=== PATIENT | female | born 1975 | race Caucasian/White ===

== ENCOUNTER 2023-08-23 17:11 | Outpatient (CLI) | payer OTHER, SELFPAY | END 2023-08-23 17:12 | disposition home or self-care (01) | PROVIDERS: PCP Student in an Organized Health Care Education/Training Program; Visit Provider Emergency Medicine | DX: S99.912A Unspecified injury of left ankle, initial encounter (principal); W00.0XXA Fall on same level due to ice and snow, initial encounter; Y92.008 Other place in unspecified non-institutional (private) residence as the place of occurrence of the external cause | CPT/HCPCS: A0425; A0433 ==

== ENCOUNTER 2023-08-23 17:50 | Emergency (ER) | payer OTHER, SELFPAY ==
--- NOTE | 2023-08-23 17:57 | XR_ITS ---
Final Report Patient: GENNA PHAM Facility:?[facility] Patient ID:?[id number] Site Patient ID:?[id number]. Site :?[id number] Study:?XRay Extremity Left ANKLE 2V-08/23/2023 6:17:46 PM Ordering Physician:?KELVIN Final Report: Indication: Trauma, fall. Technique: Left ankle 2 views. Comparison: None. Findings: Acute fracture dislocation of the left ankle with displaced fractures in the medial and lateral malleoli. Dictated by Enrique Mcgee MD @ 08/23/2023 8:40:42 PM (Electronic Signature)
--- NOTE | 2023-08-23 17:58 | ED.GENADULT ---
HPI - General Adult General Date Seen: 08/23/23 Chief complaint: Extremity Pain/Injury, Lower Stated complaint: Fall-ankle injury Time Seen by Provider: 08/23/23 17:56 Source: patient, EMS and RN notes reviewed Mode of arrival: EMS Limitations: other History of Present Illness HPI narrative: Patient is a 48-year-old woman brought in by EMS after slipping and falling in her garage. She was at a meat gravel today, had a few cocktails, says that she would not drive in her current state but does not think that she is particularly intoxicated. She injured her left ankle. She received 150 mcg of fentanyl by EMS. EMS reports on their initial exam she had a pulse, but that foot has become more purplish in color since their initial evaluation. She denies other injuries or complaints such as hitting her head, neck or back pain. Denies significant medical history or allergies. Related Data Home Medications Medication Instructions Recorded Confirmed atenolol 50 mg tablet 50 mg PO DAILY 08/23/23 08/23/23 irbesartan 75 mg tablet 75 mg PO DAILY 08/23/23 08/23/23 Allergies Allergy/AdvReac Type Severity Reaction Status Date / Time No Known Drug Allergies Allergy Verified 08/23/23 18:02 Review of Systems Status of ROS: Reports: 6 or more systems reviewed and unremarkable except as noted in History and below Exam Narrative: Exam Narrative: Vital signs reviewed In general, alert, mildly intoxicated seeming woman. She is conversant, appropriate. Head: Normocephalic, atraumatic. Eyes: Pupils are equal and reactive. ENT: No facial trauma. Neck: Nontender to palpation. Heart: Regular rate and rhythm. Lungs: Clear. Extremities: The left ankle is notable for obvious deformity. The foot is slightly dusky in appearance. I am not able to palpate a dorsalis pedis pulse at this time. She does have sensation in the toes. Skin: Warm dry and intact. Neurologic: She is alert she is conversant, answers questions appropriately. Moves all extremities. Speech slightly slurred. Affect: Normal. Const: Vital Signs, click to edit/add: Vital Signs - 24 hr 08/23/23 18:03 Temperature 98.5 F Pulse Rate [Pulse Oximeter] 67 Respiratory Rate 18 Blood Pressure [Le ft Upper Arm] 119/84 Pulse Oximetry 92 Oxygen Delivery Me thod Room Air Course Course ED Course: Patient was evaluated on arrival, x-rays ordered. Will plan for to prompt sedation and reduction of the fracture given absence of pulse. X-rays show a bimalleolar fracture dislocation. Procedure note: Informed consent was obtained, risks and benefits of the procedure including over-sedation, need for airway management, aspiration, damage to arteries or nerves, failure to reduce were all discussed. Offered to have family member present for discussion given patient had some alcohol on board but she said that was not necessary. Consent was signed. Dr. Vasquez provided sedation, please see his note for details. Ankle was reduced without difficulty, color of foot is much improved, pulse returned. Placed in a Faraz Lechuga splint using Orthoglass and Philipp wraps, tolerated well. No immediate complications. Repeat x-ray show adequate reduction of the fracture dislocation. Recommend orthopedic follow-up, appointment made. I have advised her to use Tylenol 3 times daily, oxycodone, 10 tablets provided from [email or web address]. Advised not to combine with alcohol. Crutches, nonweightbearing. Case reviewed briefly with Dr. Olvera. Vital Signs Vital signs: Initial Vital Signs Temperature 98.5 F 08/23/23 18:03 Temperature Source Temporal Artery Scan 08/23/23 18:03 Pulse Rate 67 08/23/23 18:03 Respiratory Rate 18 08/23/23 18:03 Blood Pressure 119/84 08/23/23 18:03 Blood Pressure Mean 95 08/23/23 18:03 Blood Pressure Position Supine 08/23/23 18:03 Pulse Oximetry 92 08/23/23 18:03 Oxygen Delivery Method Room Air 08/23/23 18:03 Vital Signs Temperature 98.5 F 08/23/23 18:03 Pulse Rate 67 08/23/23 18:03 Respiratory Rate 18 08/23/23 18:03 Blood Pressure 119/84 08/23/23 18:03 Pulse Oximetry 92 08/23/23 18:03 Oxygen Delivery Method Room Air 08/23/23 18:03 Temperature 98.5 F 08/23/23 18:03 Pulse Rate 67 08/23/23 18:03 Respiratory Rate 18 08/23/23 18:03 Blood Pressure 119/84 08/23/23 18:03 Pulse Oximetry 92 08/23/23 18:03 Oxygen Delivery Method Room Air 08/23/23 18:03 Medications Administered Medications: Discontinued Medications Generic Name Dose Route Start Last Admin Trade Name Honorio PRN Reason Stop Dose Admin Sodium Chloride 1,000 mls @ 1,000 mls/hr 08/23/23 18:00 08/23/23 18:10 0.9 % Sodium Chloride 1000 Ml IV 08/23/23 18:59 1,000 mls/hr .Q1H IAN Administration Propofol 200 mg 08/23/23 17:56 08/23/23 19:16 Propofol 10 Mg/Ml Inj IVP 08/23/23 17:57 60 mg ONCE ONE Administration Discharge Plan Discharge Clinical Impression: Closed displaced bimalleolar fracture of left ankle Patient Disposition: Home, Self-Care Condition: Improved Instructions: Ankle Fracture (ED), Closed Reduction (ED) Additional Instructions: Crutches, nonweightbearing. Maintain splint at all times, be aware it is not water proof. Orthopedic follow-up as scheduled. Tylenol 1000 mg 3 times daily. Oxycodone if needed for more severe pain. Do not combine with alcohol. Prescriptions: No Action irbesartan 75 mg tablet 75 mg PO DAILY atenolol 50 mg tablet 50 mg PO DAILY Follow Up/Referrals: Elena Paz PA-C [Primary Care Provider] - Stand Alone Forms: [employer] Info Instructions
[2023-08-23 18:03] VITALS: BP 119/84; PULSE 67; RESP 18; TEMP 36.9; O2SAT 92; BMI 23.0
[2023-08-23] MEDS: 0.9 % SODIUM CHLORIDE 1000 ml 1,000 ML IV (18:10)
[2023-08-23 18:14] VITALS: BP 116/87; PULSE 65; RESP 14; O2SAT 96
--- NOTE | 2023-08-23 18:36 | XR_ITS ---
Final Report Patient: GENNA PHAM Facility:?[facility] Patient ID:?[id number] Site Patient ID:?[id number]. Site :?[id number] Study:?XRay Extremity Left ANKLE 3V-08/23/2023 7:03:17 PM Ordering Physician:CANDIDA Final Report: Indication: Closed reduction Technique: Left ankle 3 views Comparison: 08/23/2023 Findings: Reduction of the previously noted dislocation with near anatomic alignment. Overlying splint or cast material. Fracture of lateral malleolus again noted. The medial malleolus fracture is also again noted. Impression: Greatly improved alignment at the ankle status post closed reduction. Dictated by Keith Govea MD @ 08/23/2023 7:22:41 PM (Electronic Signature)
[2023-08-23 18:50] VITALS: BP 106/81; PULSE 78; RESP 22; O2SAT 94
[2023-08-23] MEDS: PROPOFOL 10 MG/ML INJ 200 MG IVP (19:16)
== END 2023-08-23 19:48 | disposition home or self-care (01) ==
PROVIDERS: Emergency Provider Emergency Medicine; PCP Student in an Organized Health Care Education/Training Program
DX: S82.842A Displaced bimalleolar fracture of left lower leg, initial encounter for closed fracture (principal); W01.0XXA Fall on same level from slipping, tripping and stumbling without subsequent striking against object, initial encounter; Y92.015 Private garage of single-family (private) house as the place of occurrence of the external cause
CPT/HCPCS: 27810; 73600; 73610; 94761; 96361; 96374; 99156; 99284; 99285; J2704; J7030

== ENCOUNTER 2023-08-27 08:31 | Day surgery (SDC) | payer OTHER, SELFPAY ==
[2023-08-27] VITALS (14 sets, daily range): BP systolic 113–157; BP diastolic 82–111; PULSE 55–67; RESP 16–18; TEMP 35.9–36.9; O2SAT 92–97; BMI 24.2
[2023-08-27] MEDS: LACTATED RINGERS 1000 ML 1,000 ML 100 ML IV ×2 (08:40→14:00)
[2023-08-27] MEDS: SODIUM CHLORIDE 0.9 % (FLUSH) 10 ML SYRINGE IVF (09:04)
--- NOTE | 2023-08-27 09:37 | SUR.PREOP ---
TIME?OUT:?0940 PT/RN/MDA?VERIFICATION?OF?SURGICAL?SITE Left Ankle,?PROCEDURE Nerve Block,?AND?CONSENT OBTAINED?PRIOR?TO?INVASIVE?PROCEDURE.
--- NOTE | 2023-08-27 10:09 | P.NB_ITS ---
Nerve Block Nerve Block Time Seen by Provider: 09:45 Date Seen: 08/27/23 Type of block requested by surgeon for post-operative analgesia: adductor canal Side: left Time out performed: Yes Verification of patient name: Yes Verification of date of : Yes Site marking: site marked Name of person performing procedure: Singh Continuous monitoring Was continuous monitoring of O2 sat, B/P, stacking machine operator, recorded every 15 minutes?: Yes Procedure Checklist: sterile prep, needles and gloves Ultrasound guided. Images saved: Yes Medications given in 5ml increments after negative aspiration: Ropivicaine %: 0.5 mL: 20 Needle gauge: 20 Patient tolerated procedure well: Yes Additional comments: Needle noted adjacent to nerve Block Charges Block Charge (with Pro Fee): Femoral Nerve Use of Ultrasound Machine for Block: Yes- US Guidance/pain block
--- NOTE | 2023-08-27 10:09 | P.NB_ITS ---
Nerve Block Nerve Block Time Seen by Provider: 09:45 Date Seen: 08/27/23 Type of block requested by surgeon for post-operative analgesia: popliteal Side: left Time out performed: Yes Verification of patient name: Yes Verification of date of : Yes Site marking: site marked Name of person performing procedure: Singh Continuous monitoring Was continuous monitoring of O2 sat, B/P, cafeteria monitor, recorded every 15 minutes?: Yes Procedure Checklist: sterile prep, needles and gloves Ultrasound guided. Images saved: Yes Medications given in 5ml increments after negative aspiration: Ropivicaine %: 0.5 mL: 20 Needle gauge: 22 Patient tolerated procedure well: Yes Additional comments: Needle noted adjacent to nerve Block Charges Block Charge (with Pro Fee): Sciatic Nerve Use of Ultrasound Machine for Block: Yes- US Guidance/pain block
--- NOTE | 2023-08-27 10:10 | W.ANESCHARGE ---
Anesthesia Charges Start Date/Time Anesthesia Start Date: 08/27/23 Anesthesia Start Time: 10:30 Stop Date/Time Anesthesia Stop Date: 08/27/23 Anesthesia Stop Time: 12:40
--- NOTE | 2023-08-27 10:30 | XR_ITS ---
Patient: GENNA NAVARRO Facility:?[facility] Patient ID:?[id number] Site Patient ID:?[id number]. Site :?[id number] Study:?XRay-Extremity Left ANKLE ORIF-08/27/2023 12:22:27 PM Ordering Physician:STEPHANIE Final Report: INDICATION: ORIF of left ankle fractures TECHNIQUE: ORIF of left ankle fractures performed by Dr. Olvera. Three C-arm spot images were obtained. Fluoroscopy time was 2 minutes and 54.1 seconds. COMPARISON: None. FINDINGS: C-arm fluoroscopy for ORIF of distal fibular and medial malleolar fractures. Fibular brenda and multiple screws in good alignment. Fracture fragments in anatomic alignment. IMPRESSION: C-arm fluoroscopy for ORIF of ankle fractures. Hardware and fracture fragments in good alignment. Dictated by Mulugeta Kaminski MD @ 08/28/2023 7:14:36 AM Signed by:?Mulugeta Kaminski MD @08/28/2023 7:14:36 AM (Electronic Signature)
[2023-08-27] MEDS: CEFAZOLIN 2 GM INJ IVP (10:42)
--- NOTE | 2023-08-27 12:25 | P.ORPRC_ITS ---
Procedure Note Date of procedure: 08/27/23 Procedure: PREOPERATIVE DIAGNOSIS: Left ankle Ramirez B bimalleolar fracture POSTOPERATIVE DIAGNOSIS: Left ankle Ramirez B bimalleolar fracture NAME OF OPERATION: ORIF SURGEON: Joel Olvera MD OTOLARYNGOLOGY TEACHER: LUIS ALFREDO Leary ANESTHESIA: Spinal plus popliteal block ESTIMATED BLOOD LOSS: 0 mL COMPLICATIONS: None SPECIMENS: None DRAINS: None PREOPERATIVE ANTIBIOTICS: Ancef 1 gram INDICATIONS: The patient is a 48-year-old who sustained a left ankle fracture. ORIF was recommended. The risks, benefits and expected outcomes were discussed in detail. These included but were not limited to: Infection, bleeding, injury to blood vessel or nerve, venous thromboembolism. All questions were answered to their satisfaction. Use of an mail handler assistant was necessary throughout the case for patient positioning and safety, soft tissue retraction and closure. PROCEDURE: A popliteal block was placed by anesthesia. Spinal anesthesia was administered. The lower extremity was prepped and draped in the usual sterile fashion. A guide pin was placed in the center of the distal fragment of the fibula, percutaneously. Its placement was confirmed with the image intensifier in multiple views. A stab incision was made around the guide pin. The opening reamer was used. The guide pin was removed. The reduction finger was placed in the distal fragment. The distal fragment was held reduced. The reduction finger was taken across the fracture site. The longer, flexible guide pin was placed across the fracture, engaging the canal of the proximal fragment. The opening reamer was placed again, past the fracture site. The 3.2 mm and 4.0 mm reamer were were used in the proximal fragment. We placed the Arthrex 3.8 mm x 130 mm intramedullary nail. The talons were deployed. We placed 2 screws in the distal fragment. We then placed a 50 mm and 46 mm 3.5 mm Quadra cortical syndesmotic screw. The commutator repairer was removed, the end cap was placed. This provides an anatomic reduction of the fibula with excellent fixation. Attention then turned to the medial side. The fracture was reduced anatomically with digital pressure. A guide pin was placed percutaneously in the distal fragment. The guide pin was advanced across the fracture site into the proximal fragment. We placed a 2nd guide pin percutaneously across the fracture. A stab incision was made around each guide pin. A 4.0 mm x 46 mm cannulated screw was placed. This compressed the fracture nicely, reducing it anatomically. Implants were imaged in the AP, mortise and lateral views and were felt to be well placed with an excellent reduction. The talus is nicely reduced under the tibial plafond. The wounds were irrigated with normal saline. The mail handler assistant closed the skin with a 4-0 Monocryl in a subcuticular fashion. Glue was used to seal the skin. The mail handler assistant placed a dry dressing and short leg Faraz Lechuga splint. Sponge and needle counts were correct x 2. The patient tolerated the procedure well. There were no apparent complications. They were carefully transferred to the hospital bed and taken to the postanesthesia care unit in satisfactory condition. PLAN: The patient will be discharged to home. They will remain strict nonwei ghtbearing on the lower extremity. They will continue to work on ice and elevation. They will follow up in the office in 2 weeks for a wound check and three views of the ankle out of the splint, prior to being seen, in preparation for a short-leg, nonweightbearing cast. At 6 weeks we will allow weight-bearing in a CAM walker and begin therapy.
--- NOTE | 2023-08-27 12:45 | W.ANESCHARGE ---
Anesthesia Charges Start Date/Time Anesthesia Start Date: 08/27/23 Anesthesia Start Time: 10:30 Stop Date/Time Anesthesia Stop Date: 08/27/23 Anesthesia Stop Time: 12:40
--- NOTE | 2023-08-27 13:56 | SUR.PHASEII ---
Pt up to bathroom with wheelchair assist and RN.
== END 2023-08-27 14:44 | disposition home or self-care (01) ==
PROVIDERS: PCP Student in an Organized Health Care Education/Training Program; Visit Provider Orthopaedic Surgery
PROC: (CPT 27814; principal; 2023-08-27 10:30)
DX: S82.842A Displaced bimalleolar fracture of left lower leg, initial encounter for closed fracture (principal); G89.18 Other acute postprocedural pain
CPT/HCPCS: 27814; 01480; 64445; 64447; 73600; 76000; 76942; A4580; C1713; C1776; J0690; J1100; J2250; J2371; J2405; J2704; J2795; J7120

== ENCOUNTER 2023-12-10 06:00 | Day surgery (SDC) | payer OTHER, SELFPAY ==
--- OUTSIDE RECORDS SUMMARY | 2023-12-10 06:03 | XMS_ITS | Clinical Summary ---
Author Organization [email or web address] [facility] Address [place], [place] [address] Care Team Providers Care Electronics Specialist Name Role Phone Elena Pza Primary Care Provider [phone] Allergies Active Allergy Reactions Criticality Noted Date Comments Pollen,Fermented 04/30/2010 Medications Medication Sig Dispensed Refills Start Date End Date Status levonorgestrel intrauterine device (Mirena) 20 mcg/24 hours (7 yrs) 52 mg IUD Inject 1 Device intrauterine one time for 1 dose. Placed early 2018. 1 Each 12/06/2021 Active cholecalciferol (Vitamin D) 1,000 unit capsule Take 1 Capsule (1,000 units) by mouth once daily. 90 Capsule 3 11/21/2022 Active medication order composerIndications :RANDI (obstructive sleep apnea) 12/24/2022 AHI-14 diagnosis obstructive sleep apnea; MRD #1 1 unit 12/29/2022 Active CPAPIndications:RANDI (obstructive sleep apnea) CPAP machine for home use at pressure 4-15 cmw, nasal mask x1/3month with nasal cushion x2/mo 1 Each 11 03/06/2023 Active irbesartan (AVAPRO) 75 mg tabletIndications:H TN (hypertension) Take 1 Tablet (75 mg) by mouth once daily. 90 Tablet 3 03/13/2023 Active polyethylene glycol-electrolyte (GOLYTELY) 236-22.74-6.74 -5.86 gram suspensionIndicatio ns:Encounter for screening colonoscopy Drink 2 liters the day before the procedure and 2 liters 6 hours prior to procedure. 4000 mL 11/27/2023 Active atenoloL (TENORMIN) 50 mg tabletIndications:P rimary hypertension Take 1 Tablet (50 mg) by mouth once daily. 90 Tablet 3 10/30/2023 Active clindamycin 1% (CLEOCIN-T) 1 % gelIndications:Acne vulgaris Apply topically to affected area(s) two times daily. 30 g 1 12/07/2023 Active Hospital, Clinic, or Other Facility Administered Medication Ordered Dose Route Frequency Start Date End Date Status fentaNYL (PF) (SUBLIMAZE) 50 mcg/mL injection 100 mcgIndications:History of colon polyps 100 mcg IV ONE TIME 12/08/2023 12/08/2023 Ended midazolam (VERSED) injection 4 mgIndications:History of colon polyps 4 mg IV ONE TIME 12/08/2023 12/08/2023 Ended Active Problems Problem Noted Date Diagnosed Date RANDI (obstructive sleep apnea) 03/19/2023 Hypertriglyceridemia 03/19/2023 HTN (hypertension) 12/19/2021 Adenomatous colon polyp 07/08/2018 Overview: Colonoscopy 07/2018 polyp, repeat in 5 years Acute left-sided thoracic back pain 02/19/2017 Abdominal pain, LUQ (left upper quadrant) 2016 Bloating 02/19/2017 Vitamin D deficiency 09/30/2010 Anal fissure 09/26/2010 Resolved Problems Problem Noted Date Diagnosed Date Resolved Date Menorrhagia 09/26/2010 02/07/2014 Encounters Date Type Department Care Team Description 12/09/2023 9:00 AM CDT Orders Only [facility] [address] [place] [address] Lab, [place] [facility] 12/09/2023 Travel 12/08/2023 9:30 AM CDT Office Visit [facility] [address] [facility] [address] Arsh Townsend MD Procedure (Colonoscopy) 12/08/2023 Telephone [facility] [address] [place] [address] Elena Paz PA 12/07/2023 9:30 AM CDT Preop Visit [facility] [address] [place] [address] Elena Paz PA Preoperative Exam (/[facility] / /LEFT ANKLE HARDWARE REMOVAL / Dr. Olvera /) 12/07/2023 Travel 12/02/[address] [address] Arsh Townsend MD Appointment Reminder (Colonoscopy 12/08/23) 11/15/[address] [address] Elena Paz PA Refill Request (Atenolol) 10/30/2023 4:05 PM CDT Office Visit [address] [address] Elena Paz PA Blood Pressure 10/30/2023 Travel 10/16/[address] [address] Elena Paz PA return call (RETURN CALL) 10/15/[address] [address] Elena Paz PA Refill Request (Atenolol) 10/15/[address] [address] Elena Paz PA Refill Request (Atenolol) 09/14/2023 10:00 AM CDT Ancillary Procedure [address] [address] 09/14/2023 Travel from Last 3 Months Immunizations Name Administration Dates Next Due AMB Influenza, IIV3 (Age >=3 years) Preserve Free (Flu Clinic Only) 05/20/2012 COVID-19 vaccine (Moderna 10 0mcg/0.5mL) JAN KATHLEEN 10/05/2020,09/07/2020 COVID-19 vaccine (Pfizer-Bio NTech 30mcg/0.3mL) 12YO+ CARMELLA-SUCROSE JAN KATHLEEN 07/28/2021 Influenza, IIV3 (Age 6-35 mos) 05/28/2011 Influenza, IIV3 (Age >=3 years) 05/10/2013,05/28,04/17/2010 Influenza, IIV4 04/23/2018 Td (Age >=7 Years) 06/30/2002 Tdap 05/29/2020,09/26/2010 Family History Medical History Relation Name Comments Clotting disorder Father Heart Disease Maternal Grandmother fatal [place] Hyperlipidemia Mother Cancer-colon Neg. Cancer-prostate Paternal Grandfather meta stasized, terminal Cancer-breast Paternal Grandmother diagno sed in her 70s Good Health Sister x 2 Anesthesia Problem No Family History Blood Disease No Family History Cancer-ovarian No Family History Relation Name Status Comments Father Maternal Grandmother Mother Neg. Paternal Grandfather Paternal Grandmother Sister Social History Tobacco Use Types Packs/Day Years Used Date Smoking Tobacco: Some Days Cigarettes 1 7 Started: 12/19/2006; Last attempted to quit: 12/19/2013 Smokeless Tobacco: Never Tobacco Cessation:Ready to Q uit: Yes; Counseling Given: Yes Comments:occasional smoker Alcohol Use Standard Drinks/Week Comments Yes 3 (1 standard drink = 0.6 oz pur e alcohol) once a week PHQ-2 Answer Date Recorded PHQ-2 TOTAL SCORE 0 03/13/2023 Social Connections Answer Date Recorded Frequency of Communication with Friends and Fami ly 0 08/17/2023 Financial Resource Strain Answer Date R ecorded Difficulty of Paying Living Expenses 2 08/17/2023 Difficulty of Paying Living Expenses 1 08/17/2023 Food Insecurity Answer Date Recorded Worried About Running Out of Food in the Last Ye ar 1 08/17/2023 Transportation Needs Answer Date Record ed Lack of Transportation (Medical) 1 08/17/2023 Housing Stability Answer Date Recorded Unable to Pay for Housing in the Last Year 1 08/17/2023 Sex and Gender Information Value Date Recorded Sex Assigned at Not on file Gender Identity Not on file Sexual Orientation Not on file Obstetrics History Last Filed Vital Signs Vital Sign Reading Time Taken Comments Blood Pressure 113/80 12/08/2023 10:40 AM CDT Pulse 71 12/08/2023 10:40 AM CDT Temperature 36.7 ??C (98.1 ??F) 12/07/2023 9:38 AM CD T Respiratory Rate 14 12/08/2023 10:40 AM CDT Oxygen Saturation 95% 12/08/2023 10:40 AM CDT Inhaled Oxygen Concentration - - Weight 65.1 kg (143 lb 9.6 oz) 12/07/2023 9:38 A M CDT Height 157.5 cm (5' 2.01) 12/07/2023 9:38 AM CD T Body Mass Index 26.26 12/07/2023 9:38 AM CDT Plan of Treatment Upcoming Encounters Date Type Department Care Team (Late st Contact Info) Description 01/27/2024 2:30 PM CDT Office Visit [facility] [address] [place] [address] Hans Calderon MD [address] [place] [address] Health Maintenance Due Date Last Done Comments Pneumococcal series for age 6-64 (1 of 2 - PCV) 02/19/1980 COVID-19 vaccine series ( season) 2023 07/28/2021, 10/05/2020, 09/07/2020 Influenza for age 9-49 03/06/2024 8, 05/10/2013, 05/20/2012, Additional history exists Depression screening for age 12+ 03/13/2024 03/13/2023, 12/06/2021, 11/09/2020, Additional history exists Mammogram for age 45-75 09/13/2024 09/14/19 24, 06/23/2022, 05/06/2021, Additional history exists BMI (ht and wt on same day) for age 18+ 12/06/2024 12/07/2023, 08/25/2023, 08/17/2023, Additional history exists Pap test for age 21-65 03/20/2026 , 11/08/2020, 04/23/2018, Additional history exists Lipids for age 45-75 08/17/2028 08/17/2023, 03/13/2023, 04/04/2022, Additional history exists Colonoscopy through age 75 12/07/202812/07, 12/08/2023, 07/07/2018, Additional history exists Tetanus booster 05/29/2030 05/29/2020, 03/10/2010, 06/30/2002 Tdap Completed 05/29/2020, 09/26/2010 HIV for age 15-65 Completed 12/06/2021 Hepatitis C screening for ag e 18-79 Completed 12/06/2021 Procedures Procedure Name Priority Date/Time Associated Diagnosis Comments POTASSIUM STAT 12/09/2023 8:17 AM CDT Hyperkalemia COLONOSCOPY 12/08/2023 9:29 AM CDT POTASSIUM Routine 12/07/2023 10:24 AM CDT Preop examination XR MAMMO BILAT SCREENING Routine 09/14/2023 10:11 AM CDT Visit for screening mammogram LIPID PANEL W REFLEX MEASURED LDL Routine 08/17/2023 4:41 PM [employer] PRES[employer] Hypertriglyceridemia ANTI HIV 1/2 Routine 12/06/2021 9:14 AM CDT Screen for STD (sexually transmitted disease) ANTI HCV Routine 12/06/2021 9:14 AM CDT Screen for STD (sexually transmitted disease) INTERACTIVE MEDIA MARKETING SPECIALIST THIN PREP PAP SCREEN IMAGED Routine 03/20/2021 1:48 PM CDT Screening for malignant neoplasm of cervix from Last 3 Months or Most Recently Relevant to Health Maintenance Results * POTASSIUM (12/09/2023 8:17 AM CDT) Only the most recent of2 resultswithin the time period is included. POTASSIUM 4.0 3.5 - 5.1 mmol/L 12/09/2023 1:05 PM CDT [facility] Blood BLOOD SPECIMEN / Unknown Venipuncture / Unknown 12/09/2023 8:17 AM CDT 12/09/2023 8:17 AM CDT Elena VAZ CHEMISTRY [facility] [address] [facility] [place] [address] * COLONOSCOPY (12/08/2023 9:29 AM CDT) 12/08/2023 9:29 AM CDT Narrative Transcriptions Arsh Townsend MD - 12/08/2023 10:21 AM CDT Patient Name: Missy Kirby Procedure Date: 12/08/2023 Gender: Female Date of : 1975 Admit Type: Outpatient Procedure: Colonoscopy Proceduralist: Arsh Townsend MD , Ludy Brannon (Nurse), Pina Anaya (Nurse) Indications/Pre-Op Diagnosis: High risk colon cancer surveillance:Personal history of adenoma less than 10 mm in size, Last colonoscopy: July 2018 Medications: Fentanyl 100 micrograms IV, Midazolam 4 mgIV, The level of sedation administered wasmoderate Procedure Description: The patient had risks, benefits and alternatives explained to andgave informed consent. The patient had a stable cardiopulmonary status and judged an adequate candidate for conscious sedation. The PCF-H190L [id number] was passed through the anus and advanced to the cecum, identified by appendiceal orifice and ileocecal valve. The colonoscopy was performed without difficulty. The patient toleratedthe procedure well. The quality of the bowel preparation was good. The ileocecal valve, appendiceal orifice, and rectum were photographed. Complications: No immediate complications. Estimated Blood Loss & Specimen: Estimated blood loss: none. Specimen collected - Yes and sent to Laboratory Findings: The perianal and digital rectal examinations were normal. Two sessile polyps were found in the transverse colon. The polypswere 3 to 7 mm in size. These polyps were removed with a cold snare.Resection and retrieval were complete. The exam was otherwise without abnormality. Impressions/Post-Op Diagnosis: - Two 3 to 7 mm polyps in the transverse colon, removed with a cold snare. Resected and retrieved. - The examination was otherwise normal. Recommendation: - Patient has a contact number available for emergencies. The signsand symptoms of potential delayed complications were discussed with the patient. Return to normal activities tomorrow. Written discharge instructions were provided to the patient. - Resume previous diet. - Continue present medications. - Await pathology results. - Repeat colonoscopy is recommended. The colonoscopy date will be determined after pathology results from today's exam become available for review. Moderate Sedation: A time out was performed before the procedure. Moderate (conscious) sedation was administered by the endoscopy nurse and supervised bythe endoscopist. The following parameters were monitored: oxygensaturation, heart rate, blood pressure, EKG, CO2, respiratory rate, adequacy of pulmonary ventilation and reponse to care. Please refer to the patient's medical record flowsheets and nursing notes for moderate sedation details. Total physician intraservice time was 15 minutes. Arsh Townsend MD 12/08/2023 10:21:39 AM This report has been signed electronically. Note Initiated On: 12/08/2023 9:29 AM Procedure Code(s): --- Professional --- 64909, Colonoscopy, flexible; with removalof tumor(s), polyp(s), or other lesion(s) bysnare technique Diagnosis Code(s): --- Professional --- Z86.010, Personal history of colonicpolyps D12.3, Benign neoplasm of transverse colon (hepatic flexure or splenic flexure) CPT copyright 2022 [employer]. All rights reserved. The codes documented in this report are preliminary and upon medical policy specialist reviewmay be revised to meet current compliance requirements. Scope In: 10:01:47 AM Scope Withdrawal Time 0 hours 8 minutes 48 seconds Scope Out: 10:14:03 AM Arsh Townsend MD PROCEDURE ORD * XR MAMMO BILAT SCREENING (09/14/2023 10:11 AM CDT) Anatomical Region Laterality Modality BREASTS, Breast Left, Breast Right Bilateral Mammography Impressions 09/14/2023 2:21 PM CDT ??There is no radiographic evidence for malignancy. ??Recommend annual mammograms. MAMMOGRAM ASSESSMENT: ??ACR 1 Negative PATIENTS: You will also receive a letter with your examination results in an easy to read format. ??If you have questions about your results, please contact your referring provider. Narrative 09/14/2023 2:21 PM CDT For Patients: As a result of the Cures Act, medical imaging exams and procedure reports are released immediately into your electronic medical record. You may view this report before your referring provider. If you have questions, please contact your health care provider. XR MAMMO BILAT SCREENING [[id number]] CLINICAL HISTORY: ??This is an asymptomatic 48 y.o. patient. INDICATION FOR EXAM: Mammogram Screening. TECHNIQUE: CC & MLO views were obtained. ??This study was evaluated with the assistance of Computer-Aided Detection. COMPARISON FILM: Yes 06/23/22 [facility] 05/06/21 [facility] FINDINGS: ??The breasts are heterogeneously dense, which may obscure small masses. There are no dominant masses, suspicious micro calcifications or areas of architectural distortion. Elena VAZ MAMMO * (ABNORMAL) LIPID PANEL W REFLEX MEASURED LDL (08/17/2023 4:41 PM [employer] PRESIDENT) CHOLESTEROL,TOTAL 202(H) 100 - 199 mg/dL 08/18/2023 3:50 PM [employer] CEO [employer] PRESIDENT [facility] Comment: Cholesterol, Total Reference Ranges Desirable <200 mg/dL Borderline 200-239 mg/dL High >=240 mg/dL TRIGLYCERIDES 310(H) <150 mg/dL 08/18/2023 3:50 PM [employer] CEO [employer] PRESIDENT [facility] HDL CHOLESTEROL 53 >40 mg/dL 4 3:50 PM [employer] CEO [employer] PRESIDENT [facility] NON-HDL CHOLESTEROL 149(H) <145 mg/dl 08/18/2023 3:50 PM [employer] CEO [employer] PRESIDENT [facility] CHOL/HDL RATIO 3.81 <4.50 08/18/2023 3:50 PM [employer] CEO [employer] PRESIDENT [facility] LDL CHOLESTEROL 87 <=130 mg/dL 08/18/2023 3:50 PM [employer] CEO [employer] PRESIDENT [facility] VLDL CHOLESTEROL 62(H) <=30 mg/dL 08/18/2023 3:50 PM [employer] CEO [employer] PRESIDENT [facility] PROVIDER ORDERED STATUS RANDOM 08/18/2023 3:50 PM [employer] CEO [employer] PRESIDENT [facility] Blood BLOOD SPECIMEN / Unknown Venipuncture / Unknown 08/17/2023 4:41 PM [employer] CEO [employer] PRESIDENT 08/17/2023 4:41 PM [employer] CEO [employer] PRESIDENT Elena VAZ CHEMISTRY [facility] [address] [place] [address], * ANTI HCV (12/06/2021 9:14 AM CDT) HEPATITIS C ANTIBODY Non-React vito Non-React vito 12/06/2021 3:37 PM CDT [facility] Comment:Antibodies to HCV no t detected; does not exclude the possibility of exposure to HCV. Blood BLOOD SPECIMEN / Unknown Venipuncture / Unknown 12/06/2021 9:14 AM CDT 12/06/2021 9:18 AM CDT Gail VAZ SEND OUTS [facility] [address] [place] [address], * ANTI HIV 1/2 (12/06/2021 9:14 AM CDT) HIV-1/HIV-2 ANTIBODY Non-Reacti ve Non-Reacti ve 12/06/2021 3:13 PM CDT [facility] Comment:HIV-1 p24 and HIV-1/ HIV-2 Ab not detected. Blood BLOOD SPECIMEN / Unknown Venipuncture / Unknown 12/06/2021 9:14 AM CDT 12/06/2021 9:18 AM CDT Gail VAZ SEND OUTS [facility] [address] [place] [address], * INTERACTIVE MEDIA MARKETING SPECIALIST THIN PREP PAP SCREEN IMAGED (03/20/2021 1:48 PM CDT) Case Report Gynecologic Cytology Report ? Case: [id number] ? Authorizing Provider: ??Gail De La O PA ?Collected: ? 03/20/2021 1348 ? Ordering Location: ? [facility] ?? Received: ?03/20/2021 1435 ? Clinic ? First Screen: ?Zulema Rivera ? Specimen: ?INTERACTIVE MEDIA MARKETING SPECIALIST ThinPrep Vial Screening, Cervical ? 04/03/2021 1:50 PM CDT [facility] [employer] [facility] INTERPRETATION/ RESULT NEGATIVE FOR INTRAEPITHELIAL LESION OR MALIGNANCY (NIL) (none) 04/03/2021 1:50 PM CDT [facility] NISM(S) Shift in allyson suggestive of bacterial vaginosis 04/03/2021 1:50 PM CDT [facility] [employer] [facility] SPECIMEN ADEQUACY Satisfactory for evaluation No endocervical component seen 04/03/2021 1:50 PM CDT [facility] HPV REQUEST HPV not requested 2020 1:50 PM CDT [facility] Date of LMP unknown 04/03/2021 1:50 PM CDT [facility] Last Pap Date 11/08/20 04/03/2021 1:50 PM CDT [facility] Last Pap Result UNS 1:50 PM CDT [facility] Abnormal Pap or [place] Bx in last 5 years No 04/03/2021 1:50 PM CDT [facility] Menstrual Status Hormonally Suppressed 04/03/2021 1:50 PM CDT [facility] [place] Bx Done Today No 04/03/2021 1:50 PM CDT [facility] Additional Information None given 04/03/2021 1:50 PM CDT [facility] Comment: Cytology is screened at [facility], [facility] - [address], [place] [address] and [facility] - [address], [place] [address] and [facility] - [address] [place] [address] Interpreted at [facility] - [facility] [place] [address] Automated Review Successful 04/03/2021 1:50 PM CDT [facility] Comment:Specimen processed s uccessfully by automated staffing branch manager device, [employer] Imaging System, [employer] Note The pap test is a screening technique, not a diagnostic procedure. It is used primarily to screen for squamous cancers and precursor lesions. Published studies have shown that it is subject to both false negative and false positive results. The pap test should not be used as the sole means to diagnose or exclude pre-malignant and malignant lesions. 04/03/2021 1:50 PM CDT [facility] Other (Cervical) Non-Blood / Unknown 03/20/2021 1:48 PM CDT 03/20/2021 2:35 PM CDT Gail VAZ PATHOLOGY/[facility] [address] [place] [address], [place] from Last 3 Months or Most Recently Relevant to Health Maintenance Care Teams Electronics Specialist Relationship Specialty Start Date End Date Elena Paz PA [address] [place] [address] PCP - General Physician Rn Case Management 03/13/23
[2023-12-10 06:21] VITALS: BMI 26.2
[2023-12-10 06:24] VITALS: BP 117/87; PULSE 63; RESP 20; TEMP 36.7; O2SAT 96
[2023-12-10] MEDS: LACTATED RINGERS 1000 ML 1,000 ML 100 ML IV (06:30)
[2023-12-10] MEDS: SODIUM CHLORIDE 0.9 % (FLUSH) 10 ML SYRINGE IVF (06:37)
--- NOTE | 2023-12-10 07:18 | CRLHL7_ITS ---
For Patients: As a result of the Cures Act, medical imaging exams and procedure reports are released immediately into your electronic medical record. You may view this report before your referring provider. If you have questions, please contact your health care provider. Indication: SYNDESMOTIC SCREW REMOVAL Technique: Three fluoroscopic images of the left ankle. Fluoroscopic time 13.8 seconds. IMPRESSION: Fluoroscopic guidance for syndesmotic screw removal. Dictated by Keith Govea MD @ 12/10/2023 2:39:08 PM (Electronically Signed)
[2023-12-10] MEDS: CEFAZOLIN 2 GM INJ IVP (07:28)
[2023-12-10] MEDS: BUPIVACAINE 0.25 %/EPI 1:200K 30 ml INJECTION (07:37)
--- NOTE | 2023-12-10 07:50 | PM.ORPRC ---
Procedure Note Date of procedure: 12/10/23 Procedure: PREOPERATIVE DIAGNOSIS: Left ankle fracture ORIF with retained hardware POSTOPERATIVE DIAGNOSIS: Left ankle fracture ORIF with retained hardware SURGEON: Joel Olvera MD DRYCLEANER: LUIS ALFREDO Leary NAME OF OPERATION: Hardware removal deep ANESTHESIA: Local ESTIMATED BLOOD LOSS: 2 mL COMPLICATIONS: None SPECIMENS: None DRAINS: None PREOPERATIVE ANTIBIOTICS: Ancef 1 gram INDICATIONS: The patient is a 48-year-old who sustained an ankle fracture. ORIF was completed previously. They present today for elective syndesmotic screw removal. The risks, benefits and expected outcomes were discussed in detail. These included but were not limited to: Infection, bleeding, injury to blood vessel or nerve, venous thromboembolism. All questions were answered to their satisfaction. Use of an assistant research scientist was necessary throughout the case for patient positioning and safety, soft tissue retraction and closure. PROCEDURE: The patient was placed supine on the operating room table. IV sedation was administered. The lower extremity was prepped and draped in the usual sterile fashion. Local anesthesia was administered. The image intensifier was used to confirm location of the syndesmotic screws. We utilized our previously placed incision and opened it longitudinally. Subcutaneous dissection was bluntly taken to the screw heads which were fully exposed. Each screw was removed intact, without complication. We then utilized our previously placed lateral to medial distal interlocking screw scar. Subcutaneous dissection was bluntly taken to the screw head which was removed intact. The image intensifier was used to obtain an AP, mortise and lateral view of the ankle, showing the screws have been removed. The wound was irrigated with normal saline. The assistant research scientist closed soft tissue with a 3-0 Vicryl deep and a 3-0 Monocryl subcuticular. The assistant research scientist placed a soft dressing. Sponge and needle counts were correct x 2. The patient tolerated the procedure well. There were no apparent complications. They were carefully transferred to the hospital bed and taken to the postanesthesia care unit in satisfactory condition. PLAN: The patient will be discharged to home. They may weightbear as tolerates. Ice, elevation and Tylenol will be used as needed for pain. They will follow up in the office in 2 weeks for a wound check.
--- NOTE | 2023-12-10 08:02 | SUR.OPER ---
Patient asked twice if she wanted her screws which were explanted and she stated no did not want them
[2023-12-10 08:07] VITALS: BP 100/77; PULSE 68; RESP 16; TEMP 36.1; O2SAT 95
[2023-12-10 08:15] VITALS: BP 104/74; PULSE 49; RESP 16; O2SAT 91
--- NOTE | 2023-12-10 08:27 | W.ANESCHARGE ---
Anesthesia Charges Start Date/Time Anesthesia Start Date: 12/10/23 Anesthesia Start Time: 07:15 Stop Date/Time Anesthesia Stop Date: 12/10/23 Anesthesia Stop Time: 08:06
[2023-12-10 08:30] VITALS: BP 105/75; PULSE 56; RESP 16; O2SAT 92
--- NOTE | 2023-12-10 09:45 | W.ANESCHARGE ---
Anesthesia Charges Start Date/Time Anesthesia Start Date: 12/10/23 Anesthesia Start Time: 07:15 Stop Date/Time Anesthesia Stop Date: 12/10/23 Anesthesia Stop Time: 08:06
== END 2023-12-10 08:55 | disposition home or self-care (01) ==
LOC: OR 06:01
PROVIDERS: PCP Student in an Organized Health Care Education/Training Program; Visit Provider Orthopaedic Surgery
PROC: (CPT 20680; principal; 2023-12-10 07:15)
DX: Z47.2 Encounter for removal of internal fixation device (principal)
CPT/HCPCS: 20680; 01480; 73610; J0690; J1100; J2250; J2371; J2405; J2704; J3010; J7120

== ENCOUNTER 2024-01-11 15:15 | Outpatient (RCR) | payer OTHER, SELFPAY | END 2024-05-10 23:59 | disposition home or self-care (01) | PROVIDERS: PCP Student in an Organized Health Care Education/Training Program; Visit Provider Orthopaedic Surgery | DX: Z98.890 Other specified postprocedural states (principal); M25.572 Pain in left ankle and joints of left foot; Z74.09 Other reduced mobility; R29.898 Other symptoms and signs involving the musculoskeletal system; R26.9 Unspecified abnormalities of gait and mobility; Z51.89 Encounter for other specified aftercare | CPT/HCPCS: 97110; 97140; 97161 ==